=== PATIENT | female | born 2000 | race African-American/Black ===

== ENCOUNTER 2021-11-09 10:02 | Emergency (ER) | payer OTHER, SELFPAY | END 2021-11-09 12:22 | disposition home or self-care (01) | LOC: ERS 10:02 | DX: J02.9 Acute pharyngitis, unspecified (principal) | CPT/HCPCS: 99283 ==

== ENCOUNTER 2022-06-14 08:16 | Emergency (ER) | payer OTHER ==
[2022-06-14] MEDS ORDERED: Ibuprofen 200 MG TAB ONE (09:18)
== END 2022-06-14 09:29 | disposition home or self-care (01) ==
LOC: ERS 08:16
DX: S63.501A Unspecified sprain of right wrist, initial encounter (principal); W22.8XXA Striking against or struck by other objects, initial encounter

== ENCOUNTER 2023-02-15 18:21 | Emergency (ER) | payer SELFPAY ==
[2023-02-15] MEDS ORDERED: Acetaminophen 325 MG TAB ONE (22:46)
[2023-02-15] MEDS ORDERED: Ibuprofen 200 MG TAB ONE (22:46)
[2023-02-15 23:30] LABS: SARS-CoV-2 NAA Rapid Test Not Detected (NotDetected)
== END 2023-02-15 22:48 | disposition home or self-care (01) ==
LOC: ERS 18:21
DX: H66.91 Otitis media, unspecified, right ear (principal); Z20.822 Contact with and (suspected) exposure to COVID-19
CPT/HCPCS: 99283

== ENCOUNTER 2023-12-12 20:21 | Emergency (ER) | payer SELFPAY ==
[2023-12-12] MEDS ORDERED: HYDROcodone/Acetaminophen 10/325 mg Tablet ONE (22:23)
== END 2023-12-12 23:30 | disposition home or self-care (01) ==
LOC: ERS 20:21
DX: K08.89 Other specified disorders of teeth and supporting structures (principal)
CPT/HCPCS: 99282

== ENCOUNTER 2024-03-14 21:39 | Emergency (ER) | payer BC, SELFPAY ==
[2024-03-14] MEDS ORDERED: Ketorolac Tromethamine 30 MG (1 mL) VIAL ONE (22:15)
[2024-03-14] MEDS ORDERED: Ondansetron PF 4 MG/2 ML Vial ONE (22:15)
[2024-03-14] MEDS ORDERED: Ondansetron ODT 4 MG TAB ONE (22:24)
[2024-03-14 22:33] LABS: #Basophils 0.05 10x3/uL (0.0-0.2); #Eosinophils Less than 0.03 10x3/uL (0.0-0.7); %Basophils 0.9 % (0.0-1.0); %Eosinophils 0.4 % (0.0-10.0); %Lymphocytes 38.1 % (21.0-51.0); %Monocytes 11.6 % (0.0-10.0); %Neutrophils 48.6 % (42.0-75.0); Hematocrit 35.1 % (36.0-47.0); Hemoglobin 10.5 g/dL (12.0-16.0); Mean Corpuscular HGB CONC 29.9 g/dL (32.0-36.0); Mean Corpuscular Hemoglobin 21.8 pg (27.0-31.0); Mean Corpuscular Volume 72.8 fL (78.0-98.0); Mean Platelet Volume 10.6 fL (7.4-10.4); Platelet Count 234 10x3/uL (130-400); RBC Distribution Width 16.2 % (11.5-14.5); Red Blood Cell (RBC) Count 4.82 mill/uL (4.20-5.40)
[2024-03-14 22:45] LABS: ALT (SGPT) 14 U/L (8-55); AST (SGOT) 21 U/L (5-34); Alkaline Phosphatase 56 U/L (40-110); Anion Gap 9 mmol/L (10-20); BUN (Urea Nitrogen) 12 mg/dL (7.0-18.7); Bilirubin, Total 0.6 mg/dL (0.2-1.2); Calc. Creatinine Clearance 0 mL/min (70-130); Calcium 9.3 mg/dL (7.8-10.44); Carbon Dioxide 24 mmol/L (22-29); Chloride 108 mmol/L (98-107); Estimated GFR 114; Glucose 116 mg/dL (70-105); Potassium 3.4 mmol/L (3.5-5.1); Sodium 138 mmol/L (136-145)
[2024-03-14 22:54] LABS: Pregnancy Test - Urine (BHCG) Negative (Negative); Pregu Control Background? CLEAR/WHITE (CLR/WHITE); Pregu Control Bar Appear? YES (CONTROL BAR); Specific Gravity 1.002 (1.002-1.036)
[2024-03-14 22:55] LABS: Bacteria/HPF None Seen HPF (None Seen); Bilirubin Negative (Negative); Blood, Urine Negative (Negative); CAUTI Indications for Culture Pelvic or flank pain; Clarity Clear (Clear); Glucose, Urine (Dipstick) Normal (Negative); Ketone, Urine Negative (Negative); Leukocyte Negative Leu/uL (Negative); Nitrite Negative (Negative); Protein, Urine (Dipstick) Negative (Neg-Trace); RBC/HPF None Seen HPF (0-3); Specific Gravity, Urine 1.002 (1.002-1.036); Squamous Epithelial None Seen HPF (0-3); Urobilinogen Normal mg/dL (Less than 2); WBC/HPF None Seen HPF (0-3); pH, Urine 7.5 (5.0-9.0)
[2024-03-14 22:56] LABS: Urine Culture Reflex No No
[2024-03-14 22:58] LABS: Microcytosis SLIGHT = 6-15 cells HPF (0-5); Platelet Adequacy Comment Platelets Normal; Polychromasia SLIGHT = 2-3 cells HPF (0-2)
== END 2024-03-15 00:24 | disposition home or self-care (01) ==
LOC: ERS 21:39
DX: R11.2 Nausea with vomiting, unspecified (principal); R19.7 Diarrhea, unspecified
CPT/HCPCS: 36415; 80053; 81001; 81025; 85025; 96372; 99284; J1885; J2405; Q0162

== ENCOUNTER 2024-04-23 20:02 | Emergency (ER) | payer BC | END 2024-04-23 21:45 | disposition home or self-care (01) | LOC: ERS 20:02 | DX: J06.9 Acute upper respiratory infection, unspecified (principal) | CPT/HCPCS: 87428; 99284 ==